=== PATIENT | male | born 1960 | race Caucasian/White ===

== ENCOUNTER 2022-03-16 11:41 | Emergency (ER) | payer OTHER, SELFPAY ==
[2022-03-16 12:05] VITALS: BP 126/76; PULSE 76; RESP 18; TEMP 36.5; O2SAT 98
--- NOTE | 2022-03-16 12:34 | ED.WOUNDLAC ---
HPI - Wound/Laceration General Chief Complaint: Wound/Laceration Stated Complaint: laceration Source: patient and family Mode of arrival: ambulatory Limitations: no limitations History of Present Illness HPI narrative: 62 year old male presents to [facility] with complaints of avulsion type laceration to his right thumb since 10:00 a.m. today. Patient reports he was using a mandoline slicer to slice potatoes when he sustained a laceration. Patient reports that the wound was continuing to bleed but has since stopped. Patient reports that his tetanus shot is not up-to-date. Patient denies decreased range of motion, numbness or tingling. Onset (ago): hour(s) (2) Location: other (right thumb ) Place: home Patient tetanus UTD: No Context: accidental Associated symptoms: pain Related Data Home Medications Medication Instructions Recorded Confirmed No Home Medications 03/16/22 03/16/22 Allergies Allergy/AdvReac Type Severity Reaction Status Date / Time lorazepam Allergy Unknown Verified 10/19/18 11:04 Penicillins Allergy Unknown Verified 03/16/22 12:14 codeine AdvReac Unknown Nausea Unverified 10/29/18 08:07 morphine AdvReac Unknown Nausea Unverified 10/29/18 08:07 prochlorperazine AdvReac Unknown ANXIETY Verified 10/29/18 08:07 Review of Systems Constitutional: Constitutional: Denies chills, Denies fatigue, Denies fever(s) and Denies weakness ENT: Denies dizziness Cardiovascular: Cardiovascular: Denies chest pain Respiratory: Respiratory: Denies cough, Denies dyspnea and Denies wheezing Gastrointestinal: Gastrointestinal: Denies abdominal pain, Denies diarrhea, Denies nausea and Denies vomiting Integumentary/Breasts: Skin/Breast: Denies rash Comments: avulsion to right thumb Neurologic: Denies vertigo and Denies dizziness PMF Family History Family History Other Carcinoma of colon Family history of chronic obstructive pulmonary disease Family history of congestive heart failure Family history of gastrointestinal disorder Family history of malignant neoplasm of urinary bladder Social History Social History Smoking status: Never smoker Alcohol intake: current Comments At time of signature, I agree with nursing past medical, surgical, social and family history. There is no relevant family history pertinent to the presenting complaint. Exam Const: General: healthy appearing Nutritional Appearance: well nourished Orientation/consciousness: patient oriented x3 Limitations: no limitations Eyes: Conjunctivae: conjunctivae normal Neck: Neck: normal visual inspection Resp: Effort & Inspection: normal respiratory effort and not labored Auscultation: clear to auscultation bilaterally, no crackles, no rales, no rhonchi and no wheezes Cardio: Rate: regular rate Rhythm: regular rhythm Heart sounds: no murmurs Skin: General skin exam: normal color Rashes: no rashes Wounds: wounds noted (Avulsion to right thumb) Other: 1.25 cm avulsion noted to lateral aspect of right thumb with very small nail involvement noted. There is no active bleeding noted full range of motion noted to thumb. Neuro: General: patient oriented x3 Speech: normal speech Gait exam (Neuro): Normal gait present Psych: Mental Status: mental status grossly normal Affect: normal affect Attitude: cooperative Course Course Level of Care: Express Care Visit Vital Signs Vital signs: Vital Signs Temperature 36.5 C 03/16/22 12:05 Pulse Rate 76 03/16/22 12:05 Respiratory Rate 18 03/16/22 12:05 Blood Pressure 126/76 03/16/22 12:05 Pulse Oximetry 98 03/16/22 12:05 Oxygen Delivery Room Air 03/16/22 12:05 Temperature 36.5 C 03/16/22 12:05 Pulse Rate 76 03/16/22 12:05 Respiratory Rate 18 03/16/22 12:05 Blood Pressure 126/76 03/16/22 12:05 Pulse Oximetry 98 03/16/22 12:05 Ox
[2022-03-16] MEDS: TETANUS,DIPHTHERIA,AC PERTUSSIS ADULT (0.5 ML) BOOSTRIX IM (12:46)
== END 2022-03-16 12:50 | disposition home or self-care (01) ==
PROVIDERS: Emergency Provider Nurse Practitioner Family; PCP Family Medicine Adolescent Medicine
DX: S61.001A Unspecified open wound of right thumb without damage to nail, initial encounter (principal); W27.8XXA Contact with other nonpowered hand tool, initial encounter; Z23 Encounter for immunization
CPT/HCPCS: 90471; 90715; 99212; G0463

== ENCOUNTER 2022-05-01 12:15 | Emergency (ER) | payer OTHER, SELFPAY ==
[2022-05-01 12:50] VITALS: BP 118/87; PULSE 117; RESP 24; TEMP 38; O2SAT 100
--- NOTE | 2022-05-01 13:24 | ED.URI ---
HPI - URI/Sore Throat General Chief Complaint: Upper Respiratory Infection Stated Complaint: congestion, cough, shortness of breath Time Seen by Provider: 05/01/22 13:24 Source: patient, RN notes reviewed and old records reviewed Mode of arrival: ambulatory Limitations: no limitations History of Present Illness HPI Narrative: 62-year-old male presents to the [facility] with complaints of I have the flu. Patient is complaining of left-sided chest pain radiating down left arm, short of breath and cough since Thursday,3 days. Patient has had fever. Related Data Home Medications Medication Instructions Recorded Confirmed No Home Medications 03/16/22 05/01/22 Allergies Allergy/AdvReac Type Severity Reaction Status Date / Time lorazepam Allergy Unknown Anxiety Verified 05/01/22 12:48 Penicillins Allergy Unknown Hives Verified 05/01/22 12:48 codeine AdvReac Unknown Nausea Unverified 10/29/18 08:07 morphine AdvReac Unknown Nausea Unverified 10/29/18 08:07 prochlorperazine AdvReac Unknown ANXIETY Verified 10/29/18 08:07 Review of Systems Review of Systems: All systems reviewed & are unremarkable except as noted in HPI and below Constitutional: Constitutional: Reports no additional constitutional complaints Eyes: Eyes: Reports no additional eye complaints ENT: Reports system reviewed and no additional complaints, except as documented Cardiovascular: Cardiovascular: Reports as per HPI, Reports chest pain (Left arm), Reports radiating jaw, neck or arm pain (Left arm) and Reports dyspnea Respiratory: Respiratory: Reports as per HPI, Denies chest congestion, Reports cough and Reports dyspnea Gastrointestinal: Gastrointestinal: Reports no additional gastrointestinal complaints, Denies abdominal pain, Denies nausea and Denies vomiting Musculoskeletal: Musculoskeletal: Reports no additional musculoskeletal complaints Integumentary/Breasts: Skin/Breast: Reports system reviewed and no additional complaints, except as docu Neurologic: Reports system reviewed and no additional complaints, except as documented Psychiatric: Psychiatric: Reports no additional psychiatric complaints Allergic/Immunologic: Allergic/Immunologic: Reports no additional allergic/immunologic complaints PMFSH Past Medical History Medical History Patient denies medical problems Family History Family History Other Carcinoma of colon Family history of chronic obstructive pulmonary disease Family history of congestive heart failure Family history of gastrointestinal disorder Family history of malignant neoplasm of urinary bladder Social History Social History Smoking status: Never smoker Alcohol intake: current Comments At the time of my signature, I reviewed and agree with the nursing past medical, surgical, social, and family history. There is no relevant family history pertinent to the patient complaint. Exam Const: General: cooperative, well developed, alert, acute distress mild, ill appearing acutely, uncomfortable, well groomed and well nourished Nutritional Appearance: well nourished Orientation/consciousness: patient oriented x3 Limitations: no limitations HENMT: Head: normal to inspection Ears: hearing grossly normal bilaterally and external ears normal Face/Nose/Sinus: Normal external nose present, Normal nares present, Normal nasal mucous membranes and turbinates present and normal facial exam Face and sinus: normal facial exam Mouth: Yes Normal oral and palatal mucosa present, Yes lip normal and Yes moist mucous membranes Eyes: General: appearance normal, both eyes and all related structures Alignment and Position: alignment normal Periorbital: periorbital findings normal Conjunctivae: conjunctivae normal Pupils: Equal, round and reactive pupils present EOM: EO
--- NOTE | 2022-05-01 14:16 | ECG_ITS ---
Measurements Intervals [place] Rate: 116 P: 24 CO: 132 QRS: -10 QRSD: 100 T: 34 QT: 302 QTc: 421 Interpretive Statements SINUS TACHYCARDIA INCOMPLETE RIGHT BUNDLE BRANCH BLOCK [90+ ms QRS DURATION, TERMINAL R IN V1/V2, 40+ ms S IN I/aVL/V4/V5/V6] ABNORMAL RHYTHM ECG NO PREVIOUS ECG AVAILABLE FOR COMPARISON Electronically Signed On 05-02-2022 14:40:46 FILM DEVELOPING MACHINE OPERATOR by Miky Bernal M.D.
--- NOTE | 2022-05-01 14:18 | PC.NURSE ---
1340 EKG completed as per order of provider; patient is to be transferred to ED and patient states he will go to [facility]. Provider has called [facility] and spoke to JACQUI Huggins for transfer.
== END 2022-05-01 13:40 | disposition short-term general hospital (02) ==
PROVIDERS: Emergency Provider Nurse Practitioner; PCP Family Medicine Adolescent Medicine
DX: J10.1 Influenza due to other identified influenza virus with other respiratory manifestations (principal); R07.89 Other chest pain
CPT/HCPCS: 87804; 93005; 99213; G0463

== ENCOUNTER 2025-01-25 01:32 | Day surgery (SDC) | payer BC, SELFPAY ==
[2025-01-16 08:27] VITALS: BMI 25.1
[2025-01-25 08:12] VITALS: BMI 25.7
[2025-01-25] MEDS: LACTATED RINGERS 1,000 ML 150 ML IV CONT (08:19)
--- NOTE | 2025-01-25 08:23 | WPDANESEPPF ---
Anes - Initial Pre Proc Eval Procedure: Operation Date: 01/25/25 09:30 Proposed Procedures p Diagnostic Colonoscopy - Juan Martinez MD Date/Time: 01/25/25 08:23 Surgeon: Juan Martinez MD Pre Op Diagnosis: Dizziness and giddiness, Melena Patient Data Age: 64 Gender: M Height: 1.8 m Weight: 83.7 kg Allergies Allergy/AdvReac Type Severity Reaction Status Date / Time lorazepam Allergy Unknown Anxiety Verified 01/25/25 08:11 Penicillins Allergy Unknown Hives Verified 01/25/25 08:11 codeine AdvReac Unknown Nausea Verified 01/25/25 08:11 morphine AdvReac Unknown Nausea Verified 01/25/25 08:11 prochlorperazine AdvReac Unknown ANXIETY Verified 01/25/25 08:11 Home Medications ?Medication ?Instructions ?Recorded ?Confirmed ?Type meclizine 50 mg tablet 50 mg PO BID PRN dizziness #20 tabs 11/10/24 01/16/25 Rx Patient hx anesthesia problems: none Family hx anesthesia problems: none Results Review: All pre-operative results and documents have been reviewed as part of the pre-operative evaluation. REPLACED BY [facility] Past Medical History Medical History Family history of colon cancer in father Hyperlipidemia IBS (irritable bowel syndrome) Headache, migraine Anxiety Mitral valve prolapse Patient denies medical problems Surgical History Surgical History (Updated 01/25/25 @ 08:23 by Osorio Cooley MD) Hx of tonsillectomy Family History Family History Sibling Heart disease Father Carcinoma of prostate Bladder cancer Heart disease COPD (chronic obstructive pulmonary disease) Crohn disease Other Carcinoma of colon Family history of chronic obstructive pulmonary disease Family history of congestive heart failure Family history of gastrointestinal disorder Family history of malignant neoplasm of urinary bladder Social History Social History Smoking status: Never smoker Alcohol intake: current Drinks per week: 1 Alcohol use details: Socially Substance use: never Substance use type: does not use Do You Feel Safe in your Home?: Yes Lack of Transportation: No Lack of Food: Never True Current Housing: I Have Housing Concerned About Future Housing: No Difficulty Paying Gas/Electric Bills: No Difficulty Paying for Meds: No Currently Unemployed: No Education: Bachelor's Degree Difficulty w/ Childcare or Family Care: No Living arrangements: with family Spiritual care concerns: No Anes - Eval Final PreProcedure Day of Procedure 01/25/25 08:23 Patient weight: overweight Heart: regular rate and rhythm Lungs: clear to auscultation Airway: Mallampati scale class II Neurological: alert and oriented Last oral intake: >/= 8 hours ASA classification: II Emergent: no Anesthetic plan: proceed Anesthesia type and monitoring: general GIVS and standard monitoring Results Review: All pre-operative results and documents have been reviewed as part of the pre-operative evaluation. Informed Consent: The patient's anesthetic plan and its attendant risks and benefits were discussed with the patient/family/POA. Questions were solicited and answers provided to the satisfaction of the patient/family/POA.
[2025-01-25 08:45] VITALS: BP 128/79; PULSE 86; RESP 15; TEMP 36.4; O2SAT 99
--- NOTE | 2025-01-25 09:39 | P.HP_ITS ---
H&P: HPI History of Present Illness Date/Time: 01/25/25 09:39 Chief Complaint: family history of colon cancer Narrative: This patient has family history of colorectal cancer. his father had colorectal cancer in his mid 60s. Review of Systems Review of Systems: All systems reviewed & are unremarkable except as noted in HPI and below PMFSH Past Medical History Medical History Family history of colon cancer in father Hyperlipidemia IBS (irritable bowel syndrome) Headache, migraine Anxiety Mitral valve prolapse Patient denies medical problems Surgical History Surgical History (Updated 01/25/25 @ 08:23 by Osorio Cooley MD) Hx of tonsillectomy Family History Family History Sibling Heart disease Father Carcinoma of prostate Bladder cancer Heart disease COPD (chronic obstructive pulmonary disease) Crohn disease Other Carcinoma of colon Family history of chronic obstructive pulmonary disease Family history of congestive heart failure Family history of gastrointestinal disorder Family history of malignant neoplasm of urinary bladder Social History Social History Smoking status: Never smoker Alcohol intake: current Drinks per week: 1 Alcohol use details: Socially Substance use: never Substance use type: does not use Do You Feel Safe in your Home?: Yes Lack of Transportation: No Lack of Food: Never True Current Housing: I Have Housing Concerned About Future Housing: No Difficulty Paying Gas/Electric Bills: No Difficulty Paying for Meds: No Currently Unemployed: No Education: Bachelor's Degree Difficulty w/ Childcare or Family Care: No Living arrangements: with family Spiritual care concerns: No Meds Home Medications and Allergies Home Medications ?Medication ?Instructions ?Recorded ?Confirmed ?Type meclizine 50 mg tablet 50 mg PO BID PRN dizziness # 20 tabs 11/10/24 01/16/25 Rx Allergies Allergy/AdvReac Type Severity Reaction Status Date / Time lorazepam Allergy Unknown Anxiety Verified 01/25/25 08:11 Penicillins Allergy Unknown Hives Verified 01/25/25 08:11 codeine AdvReac Unknown Nausea Verified 01/25/25 08:11 morphine AdvReac Unknown Nausea Verified 01/25/25 08:11 prochlorperazine AdvReac Unknown ANXIETY Verified 09/24/25 08:11 Exam Const: General: cooperative and healthy appearing Resp: Effort & Inspection: normal respiratory effort and able to speak in complete sentences Auscultation: clear to auscultation bilaterally Cardio: Rate: regular rate Rhythm: regular rhythm GI: Inspection: normal to inspection GI Palp: No No hepatosplenomegaly present Auscultation: normal bowel sounds Rectal Exam: deferred Skin: General skin exam: normal color Psych: Appearance: grossly normal Mental Status: mental status grossly normal Assessment and Plan Assessment and plan (1) Family history of colon cancer in father: Code(s): Z80.0 - Family history of malignant neoplasm of digestive organs Status: Acute Assessment and Plan: The patient is deemed a good candidate for the procedure. Consent signed. Will proceed.
--- NOTE | 2025-01-25 09:59 | S_PTH ---
PATIENT: Osorio Jay LOC: [facility] U#:[id number] AGE/SX: 64/M ROOM: RE01/25/[address]: Juan Martinez MD : 1960 BED: DIS: 01/25/2025 SPEC #: [id number] RECD: 01/25/25 11:39 STATUS: KUN REQ #: [id number] CAN: 01/25/25 09:[address]: Juan Martinez DEPT: [facility] Surgical RECD BY: Priya Quintana ENTERED: 01/25/25 11:40 SP TYPE: Surgical OTHR DR: Caprice Katz, Tissues: A - Colon Polypectomy B - Colon Polypectomy Procedures: Hematoxylin and Eosin Stain Gross and Microscopic Level 4
[2025-01-25 10:00] VITALS: BP 108/71; PULSE 80; RESP 18; O2SAT 100
[2025-01-25 10:10] VITALS: BP 119/80; PULSE 68; RESP 15; O2SAT 100
[2025-01-25 10:20] VITALS: BP 122/80; PULSE 62; RESP 18; O2SAT 99
== END 2025-01-25 10:26 | disposition home or self-care (01) ==
PROVIDERS: PCP Family Medicine; Referring Provider Family Medicine; Visit Provider Internal Medicine Gastroenterology
PROC: 0DJD8ZZ Inspection of Lower Intestinal Tract, Via Natural or Artificial Opening Endoscopic (ICD-10-PCS; CPT 45378; principal; 2025-01-25 09:30)
DX: Z12.11 Encounter for screening for malignant neoplasm of colon (principal); K63.5 Polyp of colon; E78.5 Hyperlipidemia, unspecified; K58.9 Irritable bowel syndrome, unspecified; F41.9 Anxiety disorder, unspecified; Z98.890 Other specified postprocedural states; Z86.79 Personal history of other diseases of the circulatory system; Z80.0 Family history of malignant neoplasm of digestive organs; Z80.42 Family history of malignant neoplasm of prostate; Z80.52 Family history of malignant neoplasm of bladder; Z82.49 Family history of ischemic heart disease and other diseases of the circulatory system
CPT/HCPCS: 45385; 88305; J2704; J7120